=== PATIENT | male | born 1955 | race Caucasian/White ===

== ENCOUNTER 2019-01-17 13:01 | Emergency (ER) | payer OTHER ==
[~2019-01-17] VITALS: Ht 172.7 cm; Wt 73.9 kg
[2019-01-17] MEDS ORDERED: LASIX 40 MG TAB40 M2 PO (13:17)
[2019-01-17] MEDS ORDERED: ASPIR 8181 MG PO (13:17)
[2019-01-17] MEDS ORDERED: ATENOLOL 50MG T50 M1 PO (13:17)
[2019-01-17] MEDS ORDERED: LIPITOR 20 MG T20 M1 PO (13:18)
[2019-01-17] MEDS ORDERED: MULTI VITAMIN1 EACH PO (13:18)
[2019-01-17] MEDS ORDERED: FOLIC ACID0.8 M1 PO (13:18)
[2019-01-17] MEDS ORDERED: ALDACTONE50 MG PO (13:18)
[2019-01-17] MEDS ORDERED: VITAMIN B-1100 M1 PO (13:18)
[2019-01-17 13:35] LABS: ABSOLUTE BASOPHILS 0.1 thou/uL (0.0-0.2); ABSOLUTE EOSINOPHILS 0.1 thou/uL (0.0-0.7); ABSOLUTE LYMPHOCYTES 1.7 thou/uL (0.8-5.3); ABSOLUTE MONOCYTES 1.3 thou/uL (0.0-1.2); ABSOLUTE NEUTROPHILS 7.5 thou/uL (1.6-8.1); BASOPHILS 1.4 %; EOSINOPHILS 0.8 %; HEMATOCRIT 38.3 % (42.0-52.0); HEMOGLOBIN 13.5 gm/dL (14.0-18.0); LYMPHOCYTES 15.5 %; MCH 38.6 pg (26.0-34.0); MCHC 35.1 g/dL (28.0-37.0); MCV 109.7 fL (80.0-100.0); MONOCYTES 12.3 %; MPV 9.8 fl. (7.2-11.1); NUCLEATED RBCS 0 /100WBC; PLATELET COUNT* 67 thou/uL (150-400); RDW-CV 17.3 % (10.5-14.5); WBC 10.8 thou/uL (4.0-11.0)
[2019-01-17 13:44] LABS: APTT 29.8 Seconds (25.0-31.3); INR 1.7; PROTIME 17.3 Seconds (9.20-11.50)
[2019-01-17 13:54] LABS: CALCIUM 8.7 mg/dL (8.5-10.1); CREATININE 1.1 mg/dL (0.6-1.3); POTASSIUM 3.8 mmol/L (3.5-5.1); TROPONIN-I LEVEL 0.19 ng/mL (<0.06)
[2019-01-17 13:58] LABS: CK-MB MASS 5.4 ng/mL (<0.5-3.6); TOTAL BILIRUBIN 2.7 mg/dL (<0.1-1.0); TOTAL PROTEIN 7.8 g/dL (6.4-8.2)
[2019-01-17 15:12] VITALS: BP 119/60
--- NOTE | 2019-01-17 15:36 | EKG ---
[place] [address] ELECTROCARDIOGRAM REPORT Name: SERENA MERCADO Room: [facility] [id number] Admission: 01/17/19 Attend Phys: Discharge: 01/17/19 Date of : 55 Report #: [id number] THIS REPORT FOR: //name// [facility] ED Test Date: 2019-01-17 Test Time: 13:20:35 Pat Name: SERENA MERCADO Department: Room: Gender: M [employer] Operator: Timbo BEAN : 1955 Requested By: Ruddy Browning Order Number: [id number] MD: Alejandro Aguilera Measurements Intervals [place] Rate: 45 P: 17 AR: 163 QRS: -34 QRSD: 106 T: 5 QT: 532 QTc: 461 Interpretive Statements Sinus bradycardia Left axis deviation Low voltage, precordial leads No previous ECG available for comparison Electronically Signed On 01-17-2019 15:36:14 CDT by Alejandro Aguilera [email or web address] <ELECTRONICALLY SIGNED> By: Alejandro Aguilera MD, [facility] 01/17/19 1536 1320 Alejandro Aguilera MD, FACC /EPI
== END 2019-01-17 14:50 | disposition short-term general hospital (02) ==
LOC: M.ERS 13:01
PROVIDERS: Family Medicine
DX: S06.6X0A Traumatic subarachnoid hemorrhage without loss of consciousness, initial encounter (principal); K72.90 Hepatic failure, unspecified without coma; F10.10 Alcohol abuse, uncomplicated; R41.82 Altered mental status, unspecified; Z95.5 Presence of coronary angioplasty implant and graft; F17.200 Nicotine dependence, unspecified, uncomplicated; W18.39XA Other fall on same level, initial encounter; Y93.89 Activity, other specified; Y92.89 Other specified places as the place of occurrence of the external cause; Y99.8 Other external cause status